=== PATIENT | female | born 1975 | race African-American/Black ===

== ENCOUNTER 2016-11-10 09:19 | Emergency (ER) | payer OTHER ==
[~2016-11-10] VITALS: Ht 175.3 cm; Wt 113.0 kg
[~2016-11-10 09:19] MED LIST: DICL75TA5 PO; IRON PO; LISINOPRIL PO; LOVA40TA73 PO; METFORMIN PO
[2016-11-10] MEDS ORDERED: METHYLPREDNISOLONE SOD SUCC 125 MG/2 ML VIAL IV ONE (10:45)
[2016-11-10] MEDS ORDERED: DIPHENHYDRAMINE 50MG/ML VIAL IV ONE (10:45)
[2016-11-10 10:57] VITALS: BP 144/91
== END 2016-11-10 12:06 | disposition home or self-care (01) ==
LOC: ER 10:25
DX: H92.02 Otalgia, left ear (principal); J02.9 Acute pharyngitis, unspecified; E11.9 Type 2 diabetes mellitus without complications; H40.9 Unspecified glaucoma; I10 Essential (primary) hypertension; F17.210 Nicotine dependence, cigarettes, uncomplicated; Z79.4 Long term (current) use of insulin; Z79.1 Long term (current) use of non-steroidal anti-inflammatories (NSAID); Z79.899 Other long term (current) drug therapy
CPT/HCPCS: 87070; 87430; 96374; 96375; 99284; J1200; J2930; Z7610

== ENCOUNTER 2017-05-04 00:32 | Emergency (ER) | payer MEDICAID, OTHER ==
[~2017-05-04] VITALS: Ht 177.8 cm; Wt 91.0 kg
[2017-05-04] MEDS ORDERED: SODIUM CHLORIDE 0.9% 1,000 ML IV ONE (00:48)
[2017-05-04] MEDS ORDERED: LORAZEPAM 2MG/ML CPJ IV ONE (01:00)
[2017-05-04 01:14] LABS: BASOPHILS % 0.5 % (0.0-2.0); EOSINOPHILS % 0.1 % (0.0-5.0); HEMATOCRIT. 39.4 % (36.0-48.0); LYMPHOCYTES % 15.9 % (20.0-50.0); MEAN CORPUSCULAR HEMOGLOBIN 27.9 pg (28.0-32.0); MEAN CORPUSCULAR VOLUME 84.9 fL (81.0-99.0); MONOCYTES % 6.7 % (2.0-8.0); NEUTROPHILS % 76.8 % (40.0-76.0); PLATELET 239 x1000/uL (130-400); RED BLOOD CELL COUNT 4.64 mill/uL (4.2-5.4); RED CELL DISTRIBUTION WIDTH 17.3 % (11.6-14.6)
[2017-05-04 01:18] LABS: CHLORIDE 106 mEq/L (98-107)
[2017-05-04 01:27] LABS: CARBON DIOXIDE 23 mEq/L (21-32)
[2017-05-04] MEDS ORDERED: ACETAMINOPHEN 325MG TABLET PO ONE (02:00)
[2017-05-04] MEDS ORDERED: LORAZEPAM 1MG TABLET PO ONE (02:45)
[2017-05-04] MEDS ORDERED: MORPHINE SULFATE 4 MG/ML CPJ (NOT FOR IM USE) IV ONE (03:15)
[2017-05-04] MEDS ORDERED: MORPHINE SULFATE 10 MG/ML CPJ IV NR (04:15)
[2017-05-04 06:18] VITALS: BP 120/75
== END 2017-05-04 06:18 | disposition home or self-care (01) ==
LOC: ER 00:35
DX: F41.9 Anxiety disorder, unspecified (principal); R00.2 Palpitations; R00.0 Tachycardia, unspecified; I10 Essential (primary) hypertension; H40.9 Unspecified glaucoma; E11.9 Type 2 diabetes mellitus without complications; F17.200 Nicotine dependence, unspecified, uncomplicated; Z79.84 Long term (current) use of oral hypoglycemic drugs
CPT/HCPCS: 36415; 71010; 80053; 81025; 85025; 93005; 96361; 96374; 96375; 99285; J2060; J2270; J7030; Z7610

== ENCOUNTER 2017-07-14 09:36 | Emergency (ER) | payer MEDICAID, OTHER ==
[~2017-07-14] VITALS: Ht 175.3 cm; Wt 112.0 kg
[2017-07-14] MEDS ORDERED: KETOROLAC 30MG/ML VIAL IV STA (11:55)
[2017-07-14] MEDS ORDERED: ONDANSETRON HCL 4MG/2ML VIAL IV STA (11:55)
[2017-07-14] MEDS ORDERED: SODIUM CHLORIDE 0.9% 1,000 ML IV ONE (11:55)
[2017-07-14 12:30] LABS: BASOPHILS % 0.4 % (0.0-2.0); EOSINOPHILS % 1.3 % (0.0-5.0); HEMATOCRIT. 39.6 % (36.0-48.0); LYMPHOCYTES % 21.8 % (20.0-50.0); MEAN CORPUSCULAR HEMOGLOBIN 28.9 pg (28.0-32.0); MEAN CORPUSCULAR VOLUME 88.2 fL (81.0-99.0); MEAN PLATELET VOLUME 8.7 fl (7.4-10.4); MONOCYTES % 7.7 % (2.0-8.0); NEUTROPHILS % 68.8 % (40.0-76.0); PLATELET 227 x1000/uL (130-400); RED BLOOD CELL COUNT 4.49 mill/uL (4.2-5.4); RED CELL DISTRIBUTION WIDTH 17.2 % (11.6-14.6)
[2017-07-14 12:42] LABS: CARBON DIOXIDE 32 mEq/L (21-32); CHLORIDE 104 mEq/L (98-107)
[2017-07-14 13:06] VITALS: BP 112/78
[2017-07-14 13:06] LABS: CLARITY URINE CLEAR (CLEAR); COLOR URINE YELLOW (YELLOW); KETONES URINE NEGATIVE (NEGATIVE); LEUKOCYTE ESTERASE URINE NEGATIVE (NEGATIVE); NITRITE URINE NEGATIVE (NEGATIVE); OCCULT BLOOD URINE NEGATIVE (NEGATIVE); PH URINE 6.5 (4.5-8.0); PROTEIN URINE NEGATIVE (NEGATIVE); UROBILINOGEN URINE 0.2 E.U./dL (0.2-1.0)
== END 2017-07-14 14:30 | disposition home or self-care (01) ==
LOC: ER 10:06
DX: J10.1 Influenza due to other identified influenza virus with other respiratory manifestations (principal); E11.9 Type 2 diabetes mellitus without complications; E78.00 Pure hypercholesterolemia, unspecified; I10 Essential (primary) hypertension; F17.200 Nicotine dependence, unspecified, uncomplicated; Z79.84 Long term (current) use of oral hypoglycemic drugs; R19.7 Diarrhea, unspecified; R11.2 Nausea with vomiting, unspecified
CPT/HCPCS: 36415; 71045; 80053; 81003; 81025; 83690; 85025; 87804; 96361; 96374; 96375; 99285; J1885; J2405; J7030; Z7610

== ENCOUNTER 2018-01-11 09:07 | Emergency (ER) | payer OTHER ==
[~2018-01-11] VITALS: Ht 175.3 cm; Wt 108.0 kg
[2018-01-11 10:34] LABS: CLARITY URINE CLEAR (CLEAR); COLOR URINE YELLOW (YELLOW); KETONES URINE TRACE (NEGATIVE); LEUKOCYTE ESTERASE URINE 1+ (NEGATIVE); NITRITE URINE NEGATIVE (NEGATIVE); OCCULT BLOOD URINE NEGATIVE (NEGATIVE); PH URINE 5.5 (4.5-8.0); PROTEIN URINE NEGATIVE (NEGATIVE); SPECIFIC GRAVITY URINE 1.036 (1.005-1.030)
[2018-01-11 12:13] VITALS: BP 116/78
== END 2018-01-11 12:14 | disposition home or self-care (01) ==
LOC: ER 10:11
DX: N39.0 Urinary tract infection, site not specified (principal); B37.3 Candidiasis of vulva and vagina; D64.9 Anemia, unspecified; E11.9 Type 2 diabetes mellitus without complications; E78.00 Pure hypercholesterolemia, unspecified; I10 Essential (primary) hypertension; Z96.659 Presence of unspecified artificial knee joint; Z79.899 Other long term (current) drug therapy
CPT/HCPCS: 81003; 81025; 99283